=== PATIENT | female | born 2005 | race Caucasian/White ===

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

== ENCOUNTER 2025-01-22 10:17 | Outpatient (CLI) | payer BC, SELFPAY ==
[2025-01-22 12:14] LABS: Hematocrit 40.8 % (36-47); Hemoglobin 14.20 g/dL (12.4-14.8); Mean Corpuscular HGB Conc 34.8 g/dL (30-55); Mean Corpuscular Hemoglobin 30.3 pg (27-33); Mean Corpuscular Volume 87.0 fl (85-98); Nucleated Red Blood Cells % 0 %; Platelet Count 318 10^3/cmm (157-399); Red Blood Count 4.69 10^6/uL (3.85-5.65); White Blood Count 6.90 10^3/uL (4.5-13.0)
[2025-01-22 12:52] LABS: Troponin T (5th) Once < 6 ng/L (0-10)
[2025-01-22 12:55] LABS: Estmated Average Glucose 91; Hemoglobin A1C 4.8 % (4.0-6.0)
[2025-01-22 13:15] LABS: Alanine Aminotransferase 11 U/L (0-33); Albumin Level 4.6 g/dL (3.5-5.2); Alkaline Phosphatase 56 U/L (35-105); Anion Gap 12.3 (5-19); Aspartate Amino Transferase 13 U/L (0-32); Blood Urea Nitrogen 8 mg/dL (6-20); Calcium 9.2 mg/dL (8.5-10.5); Carbon Dioxide 26 mmol/L (22-29); Chloride 104 mmol/L (98-107); Cholesterol 157 mg/dL (0-200); Free T4 Free Thyroxine 1.14 ng/dL (0.93-1.60); Globulin 2.2 g/dL (1.3-4.6); Glucose 91 mg/dL (65-115); HDL Cholesterol 54 mg/dL (60-100); Magnesium 1.9 mg/dL (1.7-2.2); Osmolality Calculated 284 mOsm/kg (285-295); Potassium 4.3 mmol/L (3.5-5.1); Sodium 138 mmol/L (136-145); Thyroid Stimulating Hormone 3.25 uIU/mL (0.27-4.20); Total Protein 6.8 g/dL (6.6-8.7); Triglycerides 53 mg/dL (0-150)
[2025-01-22 14:53] LABS: CRP High Sensitivity Cardiac 0.200 mg/dL (0.0-0.3); Ferritin 60 ng/mL (15-150)
[2025-01-23 07:03] LABS: Triiodothyronine Uptake 30 % (22-35)
[2025-01-23 07:54] LABS: Insulin ( Reference Lab Test) 5.7 uIU/mL
== END 2025-01-22 10:18 | disposition home or self-care (01) ==
PROVIDERS: PCP Nurse Practitioner Family; Visit Provider Nurse Practitioner Family
DX: I49.9 Cardiac arrhythmia, unspecified (principal); E55.9 Vitamin D deficiency, unspecified; R55 Syncope and collapse
CPT/HCPCS: 80053; 80061; 82306; 82728; 83036; 83090; 83525; 83735; 84436; 84439; 84443; 84479; 84481; 84482; 84484; 85025; 86141; 86376